=== PATIENT | female | born 1980 | race Caucasian/White ===

== ENCOUNTER → 2017-06-07 | Outpatient (CLI) | payer BC | LOC: OPSV 13:36 | DX: O20.0 Threatened abortion (principal); Z41.8 Encounter for other procedures for purposes other than remedying health state; Z3A.00 Weeks of gestation of pregnancy not specified | CPT/HCPCS: 36415; 84702; 86850; 86900; 86901; 96372; J2790 ==

== ENCOUNTER → 2017-06-09 | Outpatient (CLI) | payer BC | LOC: LAB 08:52 | DX: O20.0 Threatened abortion (principal) | CPT/HCPCS: 36415; 84702 ==